=== PATIENT | female | born 1960 | race Hispanic/Latino ===

== ENCOUNTER 2018-07-28 22:46 | Inpatient (IN) | payer OTHER ==
[~2018-07-28] VITALS: Ht 157.5 cm; Wt 54.8 kg
[2018-07-28 23:12] LABS: BASOPHILS % (AUTO) 0.4 % (0.0-5.0); EOSINOPHILS % (AUTO) 0.2 % (0.0-8.0); HEMATOCRIT 34.6 % (36-48); LYMPHOCYTES % (AUTO) 7.8 % (21.0-51.0); MEAN CORPUSCULAR HEMOGLOBIN 26.3 pg (27.0-33.0); MEAN CORPUSCULAR HGB CONC 33.5 g/dL (32.0-36.0); MEAN CORPUSCULAR VOLUME 78.7 fL (79-99); MONOCYTES % (AUTO) 7.4 % (3.0-13.0); NEUTROPHILS % (AUTO) 84.2 % (40.0-77.0); PLATELET COUNT (AUTO) 671 K/uL (130-400); RED CELL DISTRIBUTION WIDTH 16.3 % (11.0-15.5); WHITE BLOOD COUNT (AUTO) 26.3 K/uL (4.8-10.8)
[2018-07-28] MEDS ORDERED: SODIUM CHLORIDE 0.9% 1000ML 1,000 ML IV ONE (23:16)
[2018-07-28] MEDS ORDERED: KETOROLAC TROMETHAMINE 30MG/ML ONE (23:16)
[2018-07-28] MEDS ORDERED: ONDANSETRON HCL 4 MG/2 ML VIAL ONE (23:16)
[2018-07-28 23:28] LABS: BILIRUBIN,TOTAL 0.5 mg/dL (0.2-1.0); CREATININE 0.9 mg/dL (0.5-1.5); POTASSIUM 3.8 mmol/L (3.5-5.1); TOTAL PROTEIN, SERUM 8.4 g/dL (6.0-8.3)
[2018-07-28 23:32] LABS: BILIRUBIN,URINE Negative (NEGATIVE); COLOR,URINE Yellow (YELLOW); GLUCOSE, URINE (UA) >=1000 mg/dL (NEGATIVE); KETONES,URINE Trace mg/dL (NEGATIVE); LEUKOCYTE ESTERASE ,URINE Small (NEGATIVE); NITRATE,URINE Negative (NEGATIVE); OCCULT BLOOD,URINE Small (NEGATIVE); PROTEIN,URINE Trace (NEGATIVE); UROBILINOGEN,URINE 0.2 mg/dL (0.2-1.0)
[2018-07-28 23:37] LABS: APPEARANCE,URINE CLEAR (CLEAR)
[2018-07-28 23:41] LABS: WBC,URINE 26-50 /HPF (0-1)
[2018-07-28 23:42] LABS: BACTERIA,URINE Many /HPF (None Seen)
[2018-07-29] VITALS (7 sets, daily range): BP systolic 93–144; BP diastolic 53–73
[2018-07-29] MEDS ORDERED: CEFTRIAXONE SODIUM 2 GM VIAL ONE (00:15)
[2018-07-29] MEDS ORDERED: SODIUM CHLORIDE 0.9% 1000ML 1,000 ML IV ONE (00:15)
[2018-07-29] MEDS ORDERED: INSULIN HUMULIN R 100 UNIT/ML 3ML ONE (00:16)
[2018-07-29] MEDS ORDERED: SODIUM CHLORIDE 0.9% 100 ML IV ONE (00:16)
[2018-07-29] MEDS: CEFTRIAXONE SODIUM 1 GM IVP SCH (03:00)
[2018-07-29] MEDS ORDERED: GLUCAGON 1MG KIT 1 MG ML IM PRN (03:00)
[2018-07-29] MEDS: SODIUM CHLORIDE 0.9% 1000ML 1,000 ML IV SCH ×3 (03:38→16:52)
[2018-07-29] MEDS ORDERED: METF-446 PO (04:08)
[2018-07-29] MEDS ORDERED: GLYB5TAB8 PO (04:08)
[2018-07-29 04:36] LABS: HEMATOCRIT 28.7 % (36-48); MEAN CORPUSCULAR HEMOGLOBIN 25.4 pg (27.0-33.0); MEAN CORPUSCULAR HGB CONC 32.3 g/dL (32.0-36.0); MEAN CORPUSCULAR VOLUME 78.6 fL (79-99); PLATELET COUNT (AUTO) 515 K/uL (130-400); RED BLOOD CELL COUNT(AUTO) 3.65 MIL/uL (4.00-5.50); RED CELL DISTRIBUTION WIDTH 16.2 % (11.0-15.5); WHITE BLOOD COUNT (AUTO) 20.5 K/uL (4.8-10.8)
[2018-07-29 04:41] LABS: HEMOGLOBIN A1C 11.7 % (4.0-6.0)
[2018-07-29 04:49] LABS: ALBUMIN 2.2 g/dL (3.5-5.0); BILIRUBIN,TOTAL 0.2 mg/dL (0.2-1.0); CREATININE 0.7 mg/dL (0.5-1.5); POTASSIUM 3.6 mmol/L (3.5-5.1); TOTAL PROTEIN, SERUM 6.4 g/dL (6.0-8.3)
[2018-07-29] MEDS: INSULIN HUMULIN R 100 UNIT/ML 3ML SQ SCH ×4 (07:12→21:42)
[2018-07-29] MEDS: FAMOTIDINE/PF 20 MG/2 ML VIAL IV SCH ×2 (10:56→20:31)
[2018-07-29] MEDS: ZOSYN 3.375GM+NS 50ML 50 ML IV SCH ×2 (13:44→20:31)
[2018-07-29] MEDS: ACETAMINOPHEN 325 MG TAB PO PRN (13:44)
[2018-07-29] MEDS: METFORMIN HCL 500 MG TABLET PO SCH ×2 (13:44→17:17)
[2018-07-29] MEDS: ENOXAPARIN SODIUM 40 MG/0.4 ML SYRINGE SQ SCH (13:45)
[2018-07-29] MEDS ORDERED: GLIM4TAB3 PO (20:45)
[2018-07-30] MEDS: CEFTRIAXONE SODIUM 1 GM IVP SCH (02:23)
[2018-07-30] MEDS: SODIUM CHLORIDE 0.9% 1000ML 1,000 ML IV SCH ×3 (02:23→20:11)
[2018-07-30] MEDS: ACETAMINOPHEN 325 MG TAB PO PRN (02:24)
[2018-07-30 03:35] VITALS: BP 116/52
[2018-07-30] MEDS: ZOSYN 3.375GM+NS 50ML 50 ML IV SCH ×3 (05:09→21:24)
[2018-07-30 05:47] LABS: HEMATOCRIT 26.5 % (36-48); MEAN CORPUSCULAR HEMOGLOBIN 25.7 pg (27.0-33.0); MEAN CORPUSCULAR HGB CONC 32.6 g/dL (32.0-36.0); MEAN CORPUSCULAR VOLUME 78.6 fL (79-99); PLATELET COUNT (AUTO) 542 K/uL (130-400); RED BLOOD CELL COUNT(AUTO) 3.37 MIL/uL (4.00-5.50); RED CELL DISTRIBUTION WIDTH 16.1 % (11.0-15.5)
[2018-07-30 06:05] LABS: CREATININE 0.7 mg/dL (0.5-1.5)
[2018-07-30 06:07] LABS: POTASSIUM 2.9 mmol/L (3.5-5.1)
[2018-07-30 06:18] LABS: CRP QUANTITATIVE 270.3 mg/L (0.00-9.0)
[2018-07-30 07:00] VITALS: BP 127/72
[2018-07-30] MEDS: METFORMIN HCL 500 MG TABLET PO SCH ×4 (07:30→16:06)
[2018-07-30] MEDS ORDERED: GLIMEPIRIDE 8 MG PO SCH (08:00)
[2018-07-30] MEDS: FAMOTIDINE/PF 20 MG/2 ML VIAL IV SCH ×2 (10:33→21:24)
[2018-07-30] MEDS: GLIMEPIRIDE 2 MG TABLET PO SCH (10:34)
[2018-07-30] MEDS: ENOXAPARIN SODIUM 40 MG/0.4 ML SYRINGE SQ SCH (10:35)
[2018-07-30 11:00] VITALS: BP 124/75
[2018-07-30] MEDS: INSULIN HUMULIN R 100 UNIT/ML 3ML SQ SCH ×3 (11:13→21:00)
[2018-07-30 16:00] VITALS: BP 136/62
[2018-07-30 20:00] VITALS: BP 128/60
[2018-07-30] MEDS: MEROPENEM 1 GM VIAL IVP SCH (21:24)
[2018-07-31] VITALS: BP 136/73
[2018-07-31] MEDS: SODIUM CHLORIDE 0.9% 1000ML 1,000 ML IV SCH ×3 (02:51→11:28)
[2018-07-31] MEDS: KETOROLAC TROMETHAMINE 15MG/ML IV PRN ×2 (03:08→20:12)
[2018-07-31] MEDS: MEROPENEM 1 GM VIAL IVP SCH ×2 (03:08→11:15)
[2018-07-31 04:00] VITALS: BP 138/72
[2018-07-31] MEDS: ZOSYN 3.375GM+NS 50ML 50 ML IV SCH ×2 (04:45→13:13)
[2018-07-31 05:00] LABS: BASOPHILS % (AUTO) 0.6 % (0.0-5.0); EOSINOPHILS % (AUTO) 2.8 % (0.0-8.0); HEMATOCRIT 26.1 % (36-48); LYMPHOCYTES % (AUTO) 20.7 % (21.0-51.0); MEAN CORPUSCULAR HGB CONC 33.2 g/dL (32.0-36.0); MEAN CORPUSCULAR VOLUME 78.2 fL (79-99); MONOCYTES % (AUTO) 7.7 % (3.0-13.0); NEUTROPHILS % (AUTO) 68.2 % (40.0-77.0); PLATELET COUNT (AUTO) 570 K/uL (130-400); RED BLOOD CELL COUNT(AUTO) 3.34 MIL/uL (4.00-5.50); RED CELL DISTRIBUTION WIDTH 15.9 % (11.0-15.5); WHITE BLOOD COUNT (AUTO) 11.3 K/uL (4.8-10.8)
[2018-07-31 05:19] LABS: ALBUMIN 1.9 g/dL (3.5-5.0); BILIRUBIN,TOTAL 0.1 mg/dL (0.2-1.0); CREATININE 0.6 mg/dL (0.5-1.5)
[2018-07-31] MEDS: INSULIN HUMULIN R 100 UNIT/ML 3ML SQ SCH ×4 (06:45→20:33)
[2018-07-31 07:30] VITALS: BP 135/66
[2018-07-31] MEDS: GLIMEPIRIDE 2 MG TABLET PO SCH (10:03)
[2018-07-31] MEDS: FAMOTIDINE/PF 20 MG/2 ML VIAL IV SCH ×2 (10:04→20:17)
[2018-07-31] MEDS: METFORMIN HCL 500 MG TABLET PO SCH ×2 (10:04→16:25)
[2018-07-31] MEDS: ENOXAPARIN SODIUM 40 MG/0.4 ML SYRINGE SQ SCH (10:05)
[2018-07-31 11:00] VITALS: BP 127/72
[2018-07-31 15:57] VITALS: BP 120/66
[2018-07-31] MEDS: CEFTRIAXONE SODIUM 2 GM VIAL IVP SCH (16:02)
[2018-07-31] MEDS ORDERED: POTASSIUM CHLORIDE 10% ELIXIR 20 MEQ/15 ML UDCUP PO ONE (18:25)
[2018-07-31] MEDS: NS-20 MEQ KCL 1000ML 1,000 ML IV SCH (19:07)
[2018-07-31 20:00] VITALS: BP 147/76
[2018-07-31] MEDS ORDERED: POTASSIUM CHLORIDE 10% ELIXIR 20 MEQ/15 ML UDCUP ONE (20:07)
[2018-08-01] VITALS: BP 131/65
[2018-08-01 04:00] VITALS: BP 144/74
[2018-08-01 05:24] LABS: BASOPHILS % (AUTO) 0.6 % (0.0-5.0); EOSINOPHILS % (AUTO) 3.2 % (0.0-8.0); HEMATOCRIT 29.7 % (36-48); LYMPHOCYTES % (AUTO) 23.3 % (21.0-51.0); MEAN CORPUSCULAR HEMOGLOBIN 26.8 pg (27.0-33.0); MEAN CORPUSCULAR HGB CONC 34.2 g/dL (32.0-36.0); MEAN CORPUSCULAR VOLUME 78.4 fL (79-99); MONOCYTES % (AUTO) 7.8 % (3.0-13.0); NEUTROPHILS % (AUTO) 65.1 % (40.0-77.0); RED BLOOD CELL COUNT(AUTO) 3.78 MIL/uL (4.00-5.50); RED CELL DISTRIBUTION WIDTH 15.9 % (11.0-15.5); WHITE BLOOD COUNT (AUTO) 9.6 K/uL (4.8-10.8)
[2018-08-01 05:34] LABS: ALBUMIN 2.1 g/dL (3.5-5.0); BILIRUBIN,TOTAL 0.1 mg/dL (0.2-1.0); CREATININE 0.6 mg/dL (0.5-1.5); POTASSIUM 3.5 mmol/L (3.5-5.1); TOTAL PROTEIN, SERUM 6.7 g/dL (6.0-8.3)
[2018-08-01 05:52] LABS: PLATELET COUNT (AUTO) 794 K/uL (130-400)
[2018-08-01] MEDS: INSULIN HUMULIN R 100 UNIT/ML 3ML SQ SCH ×4 (06:32→21:00)
[2018-08-01] MEDS: NS-20 MEQ KCL 1000ML 1,000 ML IV SCH ×2 (06:33→17:21)
[2018-08-01] MEDS: METFORMIN HCL 500 MG TABLET PO SCH ×2 (07:42→17:20)
[2018-08-01] MEDS: FAMOTIDINE/PF 20 MG/2 ML VIAL IV SCH ×2 (07:42→21:20)
[2018-08-01] MEDS: ENOXAPARIN SODIUM 40 MG/0.4 ML SYRINGE SQ SCH (07:43)
[2018-08-01] MEDS: GLIMEPIRIDE 2 MG TABLET PO SCH (07:43)
[2018-08-01 07:59] VITALS: BP 149/65
[2018-08-01 11:00] VITALS: BP 130/65
[2018-08-01] MEDS: CEFTRIAXONE SODIUM 2 GM VIAL IVP SCH (14:34)
[2018-08-01 16:00] VITALS: BP 119/90
[2018-08-01] MEDS: KETOROLAC TROMETHAMINE 15MG/ML IV PRN (17:21)
[2018-08-01 20:00] VITALS: BP 149/71
[2018-08-02] VITALS: BP 138/85
[2018-08-02] MEDS: NS-20 MEQ KCL 1000ML 1,000 ML IV SCH ×2 (03:31→16:56)
[2018-08-02 04:00] VITALS: BP 143/66
[2018-08-02 05:04] LABS: BASOPHILS % (AUTO) 0.6 % (0.0-5.0); HEMATOCRIT 29.3 % (36-48); LYMPHOCYTES % (AUTO) 30.6 % (21.0-51.0); MEAN CORPUSCULAR HEMOGLOBIN 25.9 pg (27.0-33.0); MEAN CORPUSCULAR HGB CONC 33.2 g/dL (32.0-36.0); MONOCYTES % (AUTO) 8.5 % (3.0-13.0); NEUTROPHILS % (AUTO) 52.3 % (40.0-77.0); NUCLEATED RED BLOOD CELLS 0.1 % (0.0-0.19); RED BLOOD CELL COUNT(AUTO) 3.75 MIL/uL (4.00-5.50); RED CELL DISTRIBUTION WIDTH 16.6 % (11.0-15.5); WHITE BLOOD COUNT (AUTO) 10.5 K/uL (4.8-10.8)
[2018-08-02 05:08] LABS: CREATININE 0.7 mg/dL (0.5-1.5)
[2018-08-02 05:10] LABS: PLATELET COUNT (AUTO) 747 K/uL (130-400)
[2018-08-02 07:00] VITALS: BP 136/84
[2018-08-02] MEDS: INSULIN HUMULIN R 100 UNIT/ML 3ML SQ SCH ×4 (07:02→21:26)
[2018-08-02] MEDS: METFORMIN HCL 500 MG TABLET PO SCH ×2 (08:59→16:56)
[2018-08-02] MEDS: FAMOTIDINE/PF 20 MG/2 ML VIAL IV SCH ×2 (08:59→21:16)
[2018-08-02] MEDS: GLIMEPIRIDE 2 MG TABLET PO SCH (08:59)
[2018-08-02] MEDS: ENOXAPARIN SODIUM 40 MG/0.4 ML SYRINGE SQ SCH (09:00)
[2018-08-02 11:00] VITALS: BP 139/79
[2018-08-02] MEDS: CEFTRIAXONE SODIUM 2 GM VIAL IVP SCH (15:30)
[2018-08-02 15:36] VITALS: BP 122/66
[2018-08-02 20:00] VITALS: BP 150/75
[2018-08-03] VITALS (7 sets, daily range): BP systolic 140–185; BP diastolic 86–97
[2018-08-03] MEDS: DEXTROSE 50%-WATER 50 ML DISP.SYRIN IV PRN (00:43)
[2018-08-03] MEDS: KETOROLAC TROMETHAMINE 15MG/ML IV PRN (01:13)
[2018-08-03] MEDS: ONDANSETRON HCL MDV 20ML 2 MG/ML VIAL IV PRN ×3 (02:22→16:34)
[2018-08-03] MEDS: KETOROLAC TROMETHAMINE 30MG/ML IV PRN ×3 (05:35→20:46)
[2018-08-03 05:58] LABS: BASOPHILS % (AUTO) 0.5 % (0.0-5.0); EOSINOPHILS % (AUTO) 0.7 % (0.0-8.0); HEMATOCRIT 35.5 % (36-48); LYMPHOCYTES % (AUTO) 10.9 % (21.0-51.0); MEAN CORPUSCULAR HEMOGLOBIN 25.9 pg (27.0-33.0); MEAN CORPUSCULAR HGB CONC 33.1 g/dL (32.0-36.0); MEAN CORPUSCULAR VOLUME 78.3 fL (79-99); MONOCYTES % (AUTO) 5.3 % (3.0-13.0); NEUTROPHILS % (AUTO) 82.6 % (40.0-77.0); RED BLOOD CELL COUNT(AUTO) 4.53 MIL/uL (4.00-5.50); RED CELL DISTRIBUTION WIDTH 16.3 % (11.0-15.5); WHITE BLOOD COUNT (AUTO) 16.3 K/uL (4.8-10.8)
[2018-08-03 06:02] LABS: CREATININE 0.7 mg/dL (0.5-1.5); POTASSIUM 3.8 mmol/L (3.5-5.1)
[2018-08-03 06:07] LABS: PLATELET COUNT (AUTO) 1142 K/uL (130-400)
[2018-08-03 06:31] LABS: % IRON SATURATION 8.6 % (22-44)
[2018-08-03] MEDS ORDERED: CLONIDINE HCL 0.1 MG TABLET ONE (06:47)
[2018-08-03] MEDS: INSULIN HUMULIN R 100 UNIT/ML 3ML SQ SCH ×4 (07:39→20:48)
[2018-08-03] MEDS: METFORMIN HCL 500 MG TABLET PO SCH ×2 (08:00→16:42)
[2018-08-03] MEDS ORDERED: CLONIDINE HCL 0.1 MG TABLET PO PRN (08:30)
[2018-08-03] MEDS: GLIMEPIRIDE 2 MG TABLET PO SCH (09:07)
[2018-08-03] MEDS: FAMOTIDINE/PF 20 MG/2 ML VIAL IV SCH ×2 (09:08→20:45)
[2018-08-03] MEDS: ENOXAPARIN SODIUM 40 MG/0.4 ML SYRINGE SQ SCH (09:08)
[2018-08-03] MEDS: ACETAMINOPHEN 325 MG TAB PO PRN (09:11)
[2018-08-03] MEDS: CEFTRIAXONE SODIUM 2 GM VIAL IVP SCH (13:02)
[2018-08-03] MEDS ORDERED: ACETAMINOPHEN-CODEINE 300/30MG TAB ONE (16:24)
[2018-08-04] MEDS: ONDANSETRON HCL MDV 20ML 2 MG/ML VIAL IV PRN ×2 (00:13→10:06)
[2018-08-04 04:00] VITALS: BP 132/89
[2018-08-04 05:33] LABS: BASOPHILS % (AUTO) 0.4 % (0.0-5.0); EOSINOPHILS % (AUTO) 1.3 % (0.0-8.0); HEMATOCRIT 41.5 % (36-48); LYMPHOCYTES % (AUTO) 17.7 % (21.0-51.0); MEAN CORPUSCULAR HEMOGLOBIN 25.2 pg (27.0-33.0); MEAN CORPUSCULAR HGB CONC 32.1 g/dL (32.0-36.0); MEAN CORPUSCULAR VOLUME 78.4 fL (79-99); MONOCYTES % (AUTO) 7.8 % (3.0-13.0); NEUTROPHILS % (AUTO) 72.8 % (40.0-77.0); RED BLOOD CELL COUNT(AUTO) 5.29 MIL/uL (4.00-5.50); RED CELL DISTRIBUTION WIDTH 16.8 % (11.0-15.5); WHITE BLOOD COUNT (AUTO) 16.1 K/uL (4.8-10.8)
[2018-08-04 05:37] LABS: PLATELET COUNT (AUTO) 1041 K/uL (130-400)
[2018-08-04 05:41] LABS: POTASSIUM 3.8 mmol/L (3.5-5.1)
[2018-08-04] MEDS: INSULIN HUMULIN R 100 UNIT/ML 3ML SQ SCH ×4 (06:17→20:38)
[2018-08-04 08:51] VITALS: BP 101/52
[2018-08-04] MEDS: GLIMEPIRIDE 2 MG TABLET PO SCH (10:05)
[2018-08-04] MEDS: METFORMIN HCL 500 MG TABLET PO SCH ×2 (10:05→18:06)
[2018-08-04] MEDS: FAMOTIDINE/PF 20 MG/2 ML VIAL IV SCH ×2 (10:06→20:32)
[2018-08-04] MEDS: ENOXAPARIN SODIUM 40 MG/0.4 ML SYRINGE SQ SCH (10:08)
[2018-08-04 12:06] VITALS: BP 115/52
[2018-08-04] MEDS: NS-20 MEQ KCL 1000ML 1,000 ML IV SCH (14:43)
[2018-08-04] MEDS: CEFTRIAXONE SODIUM 2 GM VIAL IVP SCH (14:43)
[2018-08-04 16:45] VITALS: BP 135/87
[2018-08-04 20:00] VITALS: BP 156/94
[2018-08-04] MEDS: FERROUS SULFATE 325 MG TABLET.DR PO SCH (20:32)
[2018-08-04 23:33] VITALS: BP 94/57
[2018-08-05] MEDS: NS-20 MEQ KCL 1000ML 1,000 ML IV SCH ×2 (00:19→09:45)
[2018-08-05 03:49] VITALS: BP 99/61
[2018-08-05 04:11] LABS: HEMATOCRIT 37.5 % (36-48); MEAN CORPUSCULAR HGB CONC 32.7 g/dL (32.0-36.0); MEAN CORPUSCULAR VOLUME 79.7 fL (79-99); RED CELL DISTRIBUTION WIDTH 16.7 % (11.0-15.5); WHITE BLOOD COUNT (AUTO) 14.1 K/uL (4.8-10.8)
[2018-08-05 04:15] LABS: CREATININE 0.9 mg/dL (0.5-1.5)
[2018-08-05 04:37] LABS: PLATELET COUNT (AUTO) 1085 K/uL (130-400)
[2018-08-05] MEDS: INSULIN HUMULIN R 100 UNIT/ML 3ML SQ SCH ×4 (06:14→21:25)
[2018-08-05] MEDS: DEXTROSE 50%-WATER 50 ML DISP.SYRIN IV PRN (06:15)
[2018-08-05] MEDS: METOCLOPRAMIDE 10 MG/2 ML VIAL IVP SCH ×3 (06:51→16:26)
[2018-08-05] MEDS: ONDANSETRON HCL MDV 20ML 2 MG/ML VIAL IV PRN ×2 (06:51→16:26)
[2018-08-05 08:00] VITALS: BP 143/76
[2018-08-05] MEDS: FOLIC ACID/VITAMIN B COMP W-C 1 MG CAPSULE PO SCH (08:46)
[2018-08-05] MEDS: GLIMEPIRIDE 2 MG TABLET PO SCH (08:48)
[2018-08-05] MEDS: FAMOTIDINE/PF 20 MG/2 ML VIAL IV SCH ×2 (08:48→21:13)
[2018-08-05] MEDS: FERROUS SULFATE 325 MG TABLET.DR PO SCH ×2 (08:48→21:13)
[2018-08-05] MEDS: METFORMIN HCL 500 MG TABLET PO SCH ×2 (08:48→16:26)
[2018-08-05] MEDS: ENOXAPARIN SODIUM 40 MG/0.4 ML SYRINGE SQ SCH (08:49)
[2018-08-05] MEDS: SODIUM CHLORIDE 0.9% 1000ML 1,000 ML IV SCH (11:20)
[2018-08-05 12:00] VITALS: BP 148/90
[2018-08-05] MEDS ORDERED: PROMETHAZINE HCL 25 MG/ML 1ML AMPULE IM ONE ×2 (15:00→21:07)
[2018-08-05 16:00] VITALS: BP 158/97
[2018-08-05] MEDS: CEFTRIAXONE SODIUM 2 GM VIAL IVP SCH (16:24)
[2018-08-05 20:00] VITALS: BP 159/95
[2018-08-06] VITALS: BP 131/76
[2018-08-06] MEDS: SODIUM CHLORIDE 0.9% 1000ML 1,000 ML IV SCH ×2 (03:04→23:51)
[2018-08-06 04:00] VITALS: BP 123/74
[2018-08-06] MEDS: DEXTROSE 50%-WATER 50 ML DISP.SYRIN IV PRN (05:47)
[2018-08-06] MEDS: INSULIN HUMULIN R 100 UNIT/ML 3ML SQ SCH ×4 (05:51→21:00)
[2018-08-06] MEDS: METOCLOPRAMIDE 10 MG/2 ML VIAL IVP SCH ×3 (07:30→16:51)
[2018-08-06] MEDS: GLIMEPIRIDE 2 MG TABLET PO SCH (08:00)
[2018-08-06] MEDS: METFORMIN HCL 500 MG TABLET PO SCH ×2 (08:00→16:51)
[2018-08-06 08:22] VITALS: BP 105/60
[2018-08-06] MEDS: FAMOTIDINE/PF 20 MG/2 ML VIAL IV SCH ×2 (11:49→23:49)
[2018-08-06] MEDS: FERROUS SULFATE 325 MG TABLET.DR PO SCH ×2 (11:50→21:00)
[2018-08-06] MEDS: FOLIC ACID/VITAMIN B COMP W-C 1 MG CAPSULE PO SCH (11:50)
[2018-08-06] MEDS: ENOXAPARIN SODIUM 40 MG/0.4 ML SYRINGE SQ SCH (11:51)
[2018-08-06 12:14] VITALS: BP 91/51
[2018-08-06] MEDS: CEFTRIAXONE SODIUM 2 GM VIAL IVP SCH (15:41)
[2018-08-06 16:03] VITALS: BP 94/62
[2018-08-06 20:00] VITALS: BP 81/55
[2018-08-07] VITALS (7 sets, daily range): BP systolic 98–140; BP diastolic 54–80
[2018-08-07] MEDS: INSULIN HUMULIN R 100 UNIT/ML 3ML SQ SCH ×4 (06:35→19:56)
[2018-08-07] MEDS: METFORMIN HCL 500 MG TABLET PO SCH (08:35)
[2018-08-07] MEDS: FOLIC ACID/VITAMIN B COMP W-C 1 MG CAPSULE PO SCH (08:35)
[2018-08-07] MEDS: FERROUS SULFATE 325 MG TABLET.DR PO SCH ×2 (08:35→20:52)
[2018-08-07] MEDS: GLIMEPIRIDE 2 MG TABLET PO SCH (08:35)
[2018-08-07] MEDS: FAMOTIDINE/PF 20 MG/2 ML VIAL IV SCH ×2 (08:36→20:52)
[2018-08-07] MEDS: METOCLOPRAMIDE 10 MG/2 ML VIAL IVP SCH ×3 (08:36→16:12)
[2018-08-07] MEDS: ENOXAPARIN SODIUM 40 MG/0.4 ML SYRINGE SQ SCH (08:37)
[2018-08-07] MEDS: DEXTROSE 50%-WATER 50 ML DISP.SYRIN IV PRN ×3 (11:35→23:20)
[2018-08-07] MEDS: SODIUM CHLORIDE 0.9% 1000ML 1,000 ML IV SCH ×2 (11:52→15:50)
[2018-08-07] MEDS: CEFTRIAXONE SODIUM 2 GM VIAL IVP SCH (14:19)
[2018-08-07 15:06] LABS: BASOPHILS % (AUTO) 0.7 % (0.0-5.0); EOSINOPHILS % (AUTO) 3.6 % (0.0-8.0); HEMATOCRIT 30.6 % (36-48); LYMPHOCYTES % (AUTO) 33.4 % (21.0-51.0); MEAN CORPUSCULAR HEMOGLOBIN 26.5 pg (27.0-33.0); MEAN CORPUSCULAR HGB CONC 33.3 g/dL (32.0-36.0); MEAN CORPUSCULAR VOLUME 79.4 fL (79-99); NEUTROPHILS % (AUTO) 53.3 % (40.0-77.0); RED BLOOD CELL COUNT(AUTO) 3.85 MIL/uL (4.00-5.50); RED CELL DISTRIBUTION WIDTH 16.4 % (11.0-15.5); WHITE BLOOD COUNT (AUTO) 7.8 K/uL (4.8-10.8)
[2018-08-07 15:12] LABS: PLATELET COUNT (AUTO) 816 K/uL (130-400)
[2018-08-07 15:20] LABS: CREATININE 0.6 mg/dL (0.5-1.5); POTASSIUM 3.8 mmol/L (3.5-5.1)
[2018-08-07] MEDS: DEXTROSE 5 % AND 0.9 % NACL 1,000 ML IV SCH (23:59)
[2018-08-08 03:00] VITALS: BP 133/76
[2018-08-08 04:28] LABS: HEMATOCRIT 31.5 % (36-48); MEAN CORPUSCULAR HGB CONC 33.1 g/dL (32.0-36.0); MEAN CORPUSCULAR VOLUME 78.7 fL (79-99); NUCLEATED RED BLOOD CELLS 0.1 % (0.0-0.19); RED CELL DISTRIBUTION WIDTH 16.3 % (11.0-15.5); WHITE BLOOD COUNT (AUTO) 6.3 K/uL (4.8-10.8)
[2018-08-08 04:34] LABS: PLATELET COUNT (AUTO) 709 K/uL (130-400)
[2018-08-08 04:49] LABS: ALBUMIN 2.5 g/dL (3.5-5.0); BILIRUBIN,TOTAL 0.1 mg/dL (0.2-1.0); CREATININE 0.5 mg/dL (0.5-1.5); MAGNESIUM 1.3 mg/dL (1.80-2.40); POTASSIUM 3.4 mmol/L (3.5-5.1); TOTAL PROTEIN, SERUM 6.3 g/dL (6.0-8.3)
[2018-08-08] MEDS ORDERED: POTASSIUM CHLORIDE 20MEQ/100ML 100 ML IV PRN (05:00)
[2018-08-08] MEDS ORDERED: MAGNESIUM 2GM PREMIX 50ML 50 ML IV PRN (05:00)
[2018-08-08] MEDS ORDERED: POTASSIUM CHLORIDE 10% ELIXIR 20 MEQ/15 ML UDCUP PO PRN (05:00)
[2018-08-08] MEDS ORDERED: LIDOCAINE HCL-MPF 1% 2ML VIAL IVP PRN (05:00)
[2018-08-08] MEDS ORDERED: MAGNESIUM 2GM PREMIX 50ML 50 ML IV ONE (05:00)
[2018-08-08] MEDS ORDERED: POTASSIUM CHLORIDE 20 MEQ ERTAB PO PRN (05:00)
[2018-08-08] MEDS: INSULIN HUMULIN R 100 UNIT/ML 3ML SQ SCH ×4 (06:35→20:30)
[2018-08-08 08:00] VITALS: BP 127/80
[2018-08-08] MEDS: METFORMIN HCL 500 MG TABLET PO SCH ×2 (08:00→16:57)
[2018-08-08] MEDS: FAMOTIDINE/PF 20 MG/2 ML VIAL IV SCH ×2 (09:17→20:29)
[2018-08-08] MEDS: FOLIC ACID/VITAMIN B COMP W-C 1 MG CAPSULE PO SCH (09:19)
[2018-08-08] MEDS: ENOXAPARIN SODIUM 40 MG/0.4 ML SYRINGE SQ SCH (09:19)
[2018-08-08] MEDS: FERROUS SULFATE 325 MG TABLET.DR PO SCH ×2 (09:19→20:29)
[2018-08-08] MEDS: METOCLOPRAMIDE 10 MG/2 ML VIAL IVP SCH ×3 (09:24→16:41)
[2018-08-08 11:46] VITALS: BP 148/95
[2018-08-08] MEDS: CEFTRIAXONE SODIUM 2 GM VIAL IVP SCH (13:42)
[2018-08-08] MEDS: DEXTROSE 5 % AND 0.9 % NACL 1,000 ML IV SCH (13:43)
[2018-08-08 16:00] VITALS: BP 124/71
[2018-08-08 20:00] VITALS: BP 100/56
[2018-08-08] MEDS: DEXTROSE 50%-WATER 50 ML DISP.SYRIN IV PRN (20:30)
[2018-08-08 23:45] VITALS: BP 129/84
[2018-08-09] MEDS: DEXTROSE 5 % AND 0.9 % NACL 1,000 ML IV SCH (02:31)
[2018-08-09 03:57] VITALS: BP 121/62
[2018-08-09 05:29] LABS: BASOPHILS % (AUTO) 1.4 % (0.0-5.0); EOSINOPHILS % (AUTO) 5.4 % (0.0-8.0); HEMATOCRIT 30.2 % (36-48); LYMPHOCYTES % (AUTO) 44.3 % (21.0-51.0); MEAN CORPUSCULAR HEMOGLOBIN 26.8 pg (27.0-33.0); MEAN CORPUSCULAR VOLUME 78.9 fL (79-99); MONOCYTES % (AUTO) 8.7 % (3.0-13.0); NEUTROPHILS % (AUTO) 40.2 % (40.0-77.0); PLATELET COUNT (AUTO) 652 K/uL (130-400); RED BLOOD CELL COUNT(AUTO) 3.83 MIL/uL (4.00-5.50); RED CELL DISTRIBUTION WIDTH 16.6 % (11.0-15.5); WHITE BLOOD COUNT (AUTO) 5.4 K/uL (4.8-10.8)
[2018-08-09 05:37] LABS: CREATININE 0.6 mg/dL (0.5-1.5); MAGNESIUM 1.4 mg/dL (1.80-2.40); POTASSIUM 3.6 mmol/L (3.5-5.1)
[2018-08-09] MEDS: INSULIN HUMULIN R 100 UNIT/ML 3ML SQ SCH ×4 (06:12→21:00)
[2018-08-09] MEDS: METOCLOPRAMIDE 10 MG/2 ML VIAL IVP SCH ×3 (06:52→17:35)
[2018-08-09 08:18] VITALS: BP 134/81
[2018-08-09] MEDS: FOLIC ACID/VITAMIN B COMP W-C 1 MG CAPSULE PO SCH (08:31)
[2018-08-09] MEDS: GLIMEPIRIDE 2 MG TABLET PO SCH (08:31)
[2018-08-09] MEDS: FERROUS SULFATE 325 MG TABLET.DR PO SCH ×2 (08:31→21:21)
[2018-08-09] MEDS: METFORMIN HCL 500 MG TABLET PO SCH ×3 (08:31→17:00)
[2018-08-09] MEDS: FAMOTIDINE/PF 20 MG/2 ML VIAL IV SCH ×2 (08:32→21:21)
[2018-08-09] MEDS: ENOXAPARIN SODIUM 40 MG/0.4 ML SYRINGE SQ SCH (08:32)
[2018-08-09 11:35] VITALS: BP 113/73
[2018-08-09] MEDS: CEFTRIAXONE SODIUM 2 GM VIAL IVP SCH (12:57)
[2018-08-09] MEDS ORDERED: SODIUM CHLORIDE 0.9% 1000ML 1,000 ML IV SCH (13:00)
[2018-08-09 16:39] VITALS: BP 138/84
[2018-08-09 20:00] VITALS: BP 105/74
[2018-08-10] VITALS: BP 143/81
[2018-08-10 04:00] VITALS: BP 138/88
[2018-08-10 05:34] LABS: BASOPHILS % (AUTO) 1.3 % (0.0-5.0); EOSINOPHILS % (AUTO) 6.5 % (0.0-8.0); HEMATOCRIT 31.7 % (36-48); LYMPHOCYTES % (AUTO) 46.5 % (21.0-51.0); MEAN CORPUSCULAR HEMOGLOBIN 26.1 pg (27.0-33.0); MEAN CORPUSCULAR HGB CONC 32.8 g/dL (32.0-36.0); MEAN CORPUSCULAR VOLUME 79.6 fL (79-99); MONOCYTES % (AUTO) 9.2 % (3.0-13.0); NEUTROPHILS % (AUTO) 36.5 % (40.0-77.0); PLATELET COUNT (AUTO) 532 K/uL (130-400); RED BLOOD CELL COUNT(AUTO) 3.98 MIL/uL (4.00-5.50); RED CELL DISTRIBUTION WIDTH 17.1 % (11.0-15.5); WHITE BLOOD COUNT (AUTO) 5.5 K/uL (4.8-10.8)
[2018-08-10 05:54] LABS: CREATININE 0.7 mg/dL (0.5-1.5); POTASSIUM 4.1 mmol/L (3.5-5.1)
[2018-08-10] MEDS: METOCLOPRAMIDE 10 MG/2 ML VIAL IVP SCH ×2 (06:52→12:11)
[2018-08-10 07:00] VITALS: BP 141/84
[2018-08-10] MEDS: INSULIN HUMULIN R 100 UNIT/ML 3ML SQ SCH ×2 (07:30→12:11)
[2018-08-10] MEDS: GLIMEPIRIDE 2 MG TABLET PO SCH (08:41)
[2018-08-10] MEDS: METFORMIN HCL 500 MG TABLET PO SCH (08:42)
[2018-08-10] MEDS: FOLIC ACID/VITAMIN B COMP W-C 1 MG CAPSULE PO SCH (08:42)
[2018-08-10] MEDS: FERROUS SULFATE 325 MG TABLET.DR PO SCH (08:42)
[2018-08-10] MEDS: FAMOTIDINE/PF 20 MG/2 ML VIAL IV SCH (08:43)
[2018-08-10] MEDS: ENOXAPARIN SODIUM 40 MG/0.4 ML SYRINGE SQ SCH (08:44)
[2018-08-10 11:00] VITALS: BP 128/68
[2018-08-10] MEDS: CEFTRIAXONE SODIUM 2 GM VIAL IVP SCH (12:31)
[2018-08-10] MEDS ORDERED: FOLI1TAB15 PO (14:15)
[2018-08-10] MEDS ORDERED: FERR-82 PO (14:15)
[2018-08-10 16:50] VITALS: BP 125/65
== END 2018-08-10 16:51 | disposition home or self-care (01) | DRG 871 ==
LOC: EDH 22:46 → EDHIP 22:47 → 3CH 07-29 01:03
PROVIDERS: ADMIT Internal Medicine; ATTEND Internal Medicine
DX: A41.51 Sepsis due to Escherichia coli [E. coli] (principal); E43 Unspecified severe protein-calorie malnutrition; N10 Acute pyelonephritis; C92.10 Chronic myeloid leukemia, BCR/ABL-positive, not having achieved remission; N17.9 Acute kidney failure, unspecified; E11.65 Type 2 diabetes mellitus with hyperglycemia; R59.9 Enlarged lymph nodes, unspecified; D47.3 Essential (hemorrhagic) thrombocythemia; D50.9 Iron deficiency anemia, unspecified; E11.43 Type 2 diabetes mellitus with diabetic autonomic (poly)neuropathy; K31.84 Gastroparesis; E86.1 Hypovolemia; K52.9 Noninfective gastroenteritis and colitis, unspecified; Z68.22 Body mass index [BMI] 22.0-22.9, adult; Z88.5 Allergy status to narcotic agent; Z88.8 Allergy status to other drugs, medicaments and biological substances; Z83.3 Family history of diabetes mellitus; Z82.49 Family history of ischemic heart disease and other diseases of the circulatory system
CPT/HCPCS: 36415; 74176; 78264; 80048; 80053; 81001; 82607; 82728; 82746; 82947; 82948; 83036; 83540; 83550; 83605; 83690; 83735; 85025; 85027; 85060; 86140; 87040; 87077; 87088; 87186; 93005; 97039; A4218; A6250; A9541; J0696; J1650; J1815; J1885; J2185; J2405; J2543; J2550; J2765; J3475; J3480; J3490; J7030; J7042; J7070

== ENCOUNTER 2024-08-14 14:36 | Emergency (ER) | payer OTHER, MEDICARE ==
[~2024-08-14] VITALS: Ht 154.9 cm; Wt 75.3 kg
[~2024-08-14 14:36] MED LIST: FERR-82 PO; FOLI1TAB15 PO; GLIM4TAB36 PO; METF-446 PO
[2024-08-14 14:38] VITALS: BP 95/62; PULSE 101; RESP 18; TEMP 98.5; O2SAT 97
[2024-08-14 15:05] LABS: RAPID GROUP A STREP negative (NEGATIVE)
[2024-08-14 15:13] LABS: SARS-CoV-2, RNA, NAAT NEGATIVE SARS CoV-2 (NEGATIVE)
[2024-08-14 15:17] LABS: INFLUENZA TYPE B Negative For Type B (NEGATIVE)
[2024-08-14 15:24] LABS: INFLUENZA TYPE A Positive For Type A (NEGATIVE)
[2024-08-14] MEDS ORDERED: OSEL75 PO (15:46)
[2024-08-14] MEDS ORDERED: ONDA-243 PO (15:46)
== END 2024-08-14 16:16 | disposition home or self-care (01) ==
LOC: EDH 14:36
DX: J10.1 Influenza due to other identified influenza virus with other respiratory manifestations (principal); E11.9 Type 2 diabetes mellitus without complications; E78.00 Pure hypercholesterolemia, unspecified; I10 Essential (primary) hypertension; Z20.822 Contact with and (suspected) exposure to COVID-19; Z79.899 Other long term (current) drug therapy; Z88.1 Allergy status to other antibiotic agents; Z88.5 Allergy status to narcotic agent
CPT/HCPCS: 71045; 87635; 87804; 87880

== ENCOUNTER 2024-11-24 12:22 | Emergency (ER) | payer OTHER, MEDICARE ==
[~2024-11-24] VITALS: Ht 154.9 cm; Wt 59.0 kg
[~2024-11-24 12:22] MED LIST changes: +ONDA-243 PO; +OSEL75 PO
[2024-11-24 13:23] LABS: APPEARANCE,URINE CLOUDY (CLEAR); BILIRUBIN,URINE NEGATIVE (NEGATIVE); COLOR,URINE LIGHT-YELLOW (YELLOW); GLUCOSE, URINE (UA) NEGATIVE (NEGATIVE); KETONES,URINE NEGATIVE (NEGATIVE); LEUKOCYTE ESTERASE ,URINE 500 Leu/uL (NEGATIVE); NITRATE,URINE NEGATIVE (NEGATIVE); OCCULT BLOOD,URINE NEGATIVE (NEGATIVE); PROTEIN,URINE NEGATIVE (NEGATIVE); UROBILINOGEN,URINE 0.2 mg/dL (0.2-1.0)
[2024-11-24 13:24] LABS: ADD UA MICROSCOPIC YES
[2024-11-24 13:29] LABS: MUCUS,URINE RARE LPF (None Seen); SQUAMOUS EPITHELIAL CELL,UR RARE /HPF (0-2); WBC,URINE 26-50 /HPF (0-1)
[2024-11-24] MEDS ORDERED: NITR100C4 PO (13:34)
--- NOTE | 2024-11-24 13:35 | ERN ---
General Chief Complaint: Painful Urination Stated Complaint: BACK PAIN,MULTIPLE COMPLAINTS Time Seen by MD: 12:23 History of Present Illness Initial Comments 64-year-old female who presents for suprapubic pressure, urgency and dysuria for 48 hours. No systemic illness. No fevers or vomiting. Allergies: Coded Allergies: ciprofloxacin (Unverified Allergy, Unknown, 07/29/18) codeine (Unverified Allergy, Unknown, 07/29/18) Home Meds Active Scripts Ondansetron (Ondansetron Odt) 4 Mg Tab.rapdis, 1 TAB PO Q6HPRN PRN for nausea/vomiting for 4 Days, #10 TAB 0 Refills Prov:JEAN CLAUDE CHAMORRO DO 08/14/24 Oseltamivir Phosphate (Tamiflu) 75 Mg Cap, 1 CAP PO BID for 5 Days, #10 CAP 0 Refills Prov:JEAN CLUADE CHAMORRO DO 08/14/24 Folic Acid (Folic Acid) 1 Mg Tablet, 1 MG PO DAILY for 10 Days, #10 TAB Prov:ELVIA SALAZAR [facility] 08/10/18 Ferrous Sulfate (Iron) 325 Mg Tablet, 325 MG PO BID for 10 Days, #20 TAB Prov:ELVIA SALAZAR [facility] 08/10/18 Reported Medications Glimepiride (Glimepiride) 4 Mg Tablet, 8 MG PO DAILYBKFST, TAB 07/29/18 Metformin HCl (Metformin HCl) 1,000 Mg Tablet, 1000 MG PO BIDAC, TAB 07/29/18 Past Medical History Past Medical History: Diabetes-Type II, High Cholesterol, Hypertension Past Surgical History: ROS Dictation CONSTITUTIONAL: No chills, no fever, no weakness, no diaphoresis, no malaise. HEAD/FACE: No signs of trauma. EENT: No eye pain, no blurred vision, no tearing, no double vision, no ear pain, no ear discharge, no nose pain, no nasal congestion, no throat pain, no throat swelling, no mouth pain. RESPIRATORY: No cough, no orthopnea, no SOB, no stridor, no wheezing. CARDIOVASCULAR: No chest pain, no edema, no palpitations, no syncope. GASTROINTESTINAL/ABDOMINAL: No abdominal pain, no constipation, no diarrhea, no nausea, no vomiting. GENITOURINARY: Dysuria and urgency MUSCULOSKELETAL: No back pain, no gout, no joint pain, no joint swelling, no muscle pain, no muscle stiffness, no neck pain. INTEGUMENTARY: No change in color, no change in hair/nails, no dryness, no lesion, no lumps, no rash. NEUROLOGICAL/PSYCH: No anxiety, not depressed, no emotional problem, no headache, no numbness, no pre-existing deficit, no history of seizures, no tremors, no weakness. HEMATOLOGIC/LYMPHATIC: Not anemic, no history of blood clots, no apparent bleeding, no bruising, glands not swollen. All Systems Negative, Except as Noted. Physical Exam Physical Exam Dictation VITAL SIGNS: Reviewed. GENERAL APPEARANCE: Alert, oriented x3, no acute distress. HEAD AND FACE: Non-traumatic. EYES: PERRL, pink conjunctivas, eyelid no trauma, anterior chamber clear. EARS: Pinnas intact and no signs of trauma or erythema. Ear canals clear and no discharge. TMs no erythema. NOSE: No discharge, no bleeding. OROPHARYNX: Mouth normal, teeth no caries, tongue pink. Pharynx clear, no erythema. Tonsils no exudates, no abscesses noted. Mucous membrane moist. NECK: Supple, non-tender, no thyromegaly, no masses, no JVD, no bruits. BREAST: Deferred. CHEST: No tenderness, no crepitus, no paradoxical movement, no retractions. LUNGS: Clear, well-ventilated, symmetric, no rales, no wheezing, no rhonchi, no stridor, good breath sounds bilaterally. HEART: Regular rate, regular rhythm, no murmur, no gallops. VASCULAR: No peripheral edema. ABDOMEN: Soft, positive bowel sounds, nondistended, no guarding, nontender, no rebound, no masses no hepatomegaly, no splenomegaly, no Rouse's sign, no hernias. RECTAL: Deferred. GENITAL: Deferred. NEUROLOGICAL: Normal speech, gross motor function intact, gross sensory function intact. MUSCULOSKELETAL: Neck nontender, full range of motion, back nontender, full range of motion. EXTREMITIES: Nontender, full range of motion. SKIN: Color pink, dry, no turgor, no rash, no lacerations, no abrasions, no c ontusions. LYMPHATICS: Deferred. Results Laboratory and Microbiology Lab and Micro Result Laboratory Tests Test 11/24/24 12:49 Urine Color LIGHT-YELLOW (YELLOW) Urine Appearance CLOUDY (CLEAR) H Urine pH 7.0 (5.0-8.0) Urine Specific [place] 1.014 (1.001-1.031) Urine Protein NEGATIVE mg/dL (NEGATIVE) Urine Glucose (UA) NEGATIVE mg/dL (NEGATIVE) Urine Ketones NEGATIVE mg/dL (NEGATIVE) Urine Occult Blood NEGATIVE (NEGATIVE) Urine Nitrate NEGATIVE (NEGATIVE) Urine Bilirubin NEGATIVE mg/dL (NEGATIVE) Urine Urobilinogen 0.2 mg/dL (0.2-1.0) Urine Leukocyte Esterase 500 Antonio/uL (NEGATIVE) H Urine RBC 2-5 /HPF (0-1) H Urine WBC 26-50 /HPF (0-1) H Urine Squamous Epithelial Cells RARE /HPF (0-2) Urine Bacteria None /HPF (None Seen) MDM CC: Dysuria, suprapubic discomfort, urgency Historian: Patient No comorbidities No limitations by social determinants of health Vital signs are stable Differential diagnosis: Simple cystitis but has been versus sepsis Vital signs are stable. No clinical signs of SIRS or sepsis Clinical exam is unremarkable. No flank pain, no signs of sepsis no signs of pyelonephritis Urinalysis shows leuk esterase, consistent with a urinary tract infection. Patient given IM Rocephin in the ER. Plan: We will discharge with antibiotics recommend PCP follow up. ED Course Orders Procedure Category Date Status Time Urinalysis Profile LAB 11/24/24 Complete 12:34 Culture Urine DANETTE 11/24/24 In Process 13:24 Vital Signs Date Time Temp Pulse Resp B/P (MAP) Pulse Ox O2 Delivery O2 Flow Rate FiO2 11/24/24 12:35 98.2 95 20 107/55 99 0 DX & DISP Disposition: Discharge Departure Impression: Primary Impression: UTI (urinary tract infection) Condition: Stable Scripts Nitrofurantoin Monohyd/M-Cryst (Macrobid 100 mg Capsule) 100 Mg Capsule 1 CAP PO BID for 5 Days, #10 CAP 0 Refills Prov: JEAN CLAUDE CHAMORRO DO 11/24/24 Additional Instructions: You have a urinary tract infection based on your symptoms and urinalysis. You received a dose of antibiotics in the ER. I have prescribed antibiotics. Please take as prescribed. You can try [id number] [id number] as needed for discomfort. You can alternate Tylenol and ibuprofen as needed for pain or fever. Please follow up with your primary doctor in 48 hours for re-evaluation. Return to the emergency department as needed. Referrals: SOCO COOPER (PCP) JEAN CLAUDE CHAMORRO DO Nov 24, 2024 13:35
[2024-11-24] MEDS: cefTRIAXone 1G VIAL IM ONE (14:02)
[2024-11-24 14:11] VITALS: BP 161/62; PULSE 78; RESP 20; TEMP 98.7; O2SAT 100
== END 2024-11-24 14:18 | disposition home or self-care (01) ==
LOC: EDH 12:22
DX: N39.0 Urinary tract infection, site not specified (principal); E11.9 Type 2 diabetes mellitus without complications; E78.00 Pure hypercholesterolemia, unspecified; I10 Essential (primary) hypertension; Z88.1 Allergy status to other antibiotic agents; Z88.5 Allergy status to narcotic agent
CPT/HCPCS: 99283; 87086 ×2; 87186; 81001; 96372; J0696

== ENCOUNTER 2025-02-08 21:33 | Emergency (ER) | payer OTHER, MEDICARE ==
[~2025-02-08] VITALS: Ht 154.9 cm; Wt 71.7 kg
[~2025-02-08 21:33] MED LIST changes: +NITR100C4 PO
[2025-02-08] MEDS: ketOROlac 15MG/ML VIAL (15MG/ML) IM STA (22:28)
--- NOTE | 2025-02-08 23:20 | ERN ---
ED Note History of Present Illness Stated Complaint: C/O PAIN WITH SWELLING TO LEFT LOWER LEG Chief Complaint: Lower Extremity Pain/Injury Time Seen by MD: 21:37 Time Seen by Midlevel: 21:40 Dictation: 64-year-old female coming in complaining of left knee pain. Patient states she hit her in her knee on a corner of a drawer twice today. Ecchymosis noted about an inch to [id number], however patient is complaining of pain on the lateral aspects of the knee. Allergies: Coded Allergies: ciprofloxacin (Unverified Allergy, Unknown, 07/29/18) codeine (Unverified Allergy, Unknown, 07/29/18) Home Meds Active Scripts Nitrofurantoin Monohyd/M-Cryst (Macrobid 100 mg Capsule) 100 Mg Capsule, 1 CAP PO BID for 5 Days, #10 CAP 0 Refills Prov:JEAN CLAUDE CHAMORRO DO 11/24/24 Ondansetron (Ondansetron Odt) 4 Mg Tab.rapdis, 1 TAB PO Q6HPRN PRN for nausea/vomiting for 4 Days, #10 TAB 0 Refills Prov:JEAN CLAUDE CHAMORRO DO 08/14/24 Oseltamivir Phosphate (Tamiflu) 75 Mg Cap, 1 CAP PO BID for 5 Days, #10 CAP 0 Refills Prov:JEAN CLAUDE CHAMORRO DO 08/14/24 Folic Acid (Folic Acid) 1 Mg Tablet, 1 MG PO DAILY for 10 Days, #10 TAB Prov:ELVIA SALAZAR [facility] 08/10/18 Ferrous Sulfate (Iron) 325 Mg Tablet, 325 MG PO BID for 10 Days, #20 TAB Prov:ELVIA SALAZAR [facility] 08/10/18 Reported Medications Glimepiride (Glimepiride) 4 Mg Tablet, 8 MG PO DAILYBKFST, TAB 07/29/18 Metformin HCl (Metformin HCl) 1,000 Mg Tablet, 1000 MG PO BIDAC, TAB 07/29/18 Past Medical History Past Medical History: Arthritis, Diabetes-Type II, Hypertension, Other Additional Past Medical Hx: HX OF GASTRITIS Surgical History: Review of System Dictation Constitutional: Negative for fever,chills, and weight loss Eyes: Negative for injury, pain,redness, and discharge ENT: Negative for injury,pain or swelling Cardiovascular: Negative for chest pain, palpitations, and edema Respiratory: Negative for shortness of breath, cough, and wheezing, Abdomen/GI: Negative for abdominal pain, nausea, vomiting, diarrhea, and con stipation Back: Negative for injury and pain : Negative for injury, bleeding and discharge MS/Extremity: complaining of left knee pain Skin: Negative for rash, and discoloration Neuro: Negative for headache, weakness, numbness, tingling, and seizure Psych: Negative for suicide ideation, homicidal ideation, and hallucinations Review of Systems: was completed Initial Vital Sign VS Vital Signs Date Time Temp Pulse Resp B/P (MAP) Pulse Ox O2 Delivery O2 Flow Rate FiO2 02/08/25 21:35 98.2 96 20 150/76 97 Room Air 02/08/25 22:40 0 21 Physical Exam Dictation General: awake, alert, NAD Head/Face: Normocephalic, atraumatic Eyes: PERRL, EOMI, vision at baseline ENT: oral cavity clear, TMs clear, no signs of infection Neck: Trachea midline, supple, no nuchal rigidity Cardiovascular: RRR, normal S1/S2, No MRGs, no JVD Respiratory: CTAB, no respiratory distress, No rales or wheezes Abdomen: Soft, non-tender, non-distended, normal bowel sounds, no guarding or rebound. Skin: Warm, dry, normal turgor, no rash MS/Extremity: Pulses equal, no cyanosis, neurovascular intact, FROM, there is ecchymosis about an inches [id number], pain on palpation in the lateral aspect of the knee, more so on flexion Neuro: COAx4, GCS 15, strength 5/5, CN 2-12 intact, normal cerebellar exam, normal gait, Psych: Normal behavior, mood, and affect normal Results (Laboratory/Radiology) Labs Reviewed?: Yes ED Course ED Course Orders Procedure Category Date Status Time Knee 3vws Lt RAD 02/08/25 Taken 21:45 Ketorolac PHA 02/08/25 Complete Tromethamine 15mg/Ml 21:45 Place Knee Imobilizer CPOE 02/08/25 Verified To: (Er) 23:15 Current Medications Medications (Trade) Dose Ordered Sig/Lida Route PRN Reason Start Time Stop Time Status Last Admin Dose Admin Ketorolac Tromethamine (toRADol) 15 mg ONCE STAT IM 02/08/25 21:45 02/08/25 21:48 DC 02/08/25 22:28 Vital Signs Date Time Temp Pulse Resp B/P (MAP) Pulse Ox O2 Delivery O2 Flow Rate FiO2 02/08/25 22:40 80 18 120/67 100 Room Air* 0 21 02/08/25 21:35 98.2 96 20 150/76 97 Room Air Medical Decision Making MDM MDM: 64-year-old female coming in complaining of left knee pain. Patient states she hit her in her knee on a corner of a drawer twice today. Ecchymosis noted about an inch to [id number], however patient is complaining of pain on the lateral aspects of the knee. X-ray shows no acute findings, interpreted by me. Discussed with the patient that she needs to follow up with her PCP as she might need further evaluation for tendon or ligament injury. Patient will was placed in a knee immobilizer. Discussed to take Tylenol or Motrin [id number]. Patient verbalized understanding, answered all questions. Differential diagnosis: Knee contusion, knee dislocation, ligament injury Rationale: Tests considered and ordered secondary to shared decision making include: Previous outside records reviewed: Old ER visits. Risk of complication and/or morbidity or mortality of patient management: None Medications-Per medication reconciliation Need for hospitalization: Patient does not meet criteria for hospitalization. Need for emergency major/minor surgery: No There are no social concerns with this patient. Prescription drug management Prescriptions will include symptomatic care Patient's prior external medical records from other ER visits were reviewed by me as indicated. Prior testing and results from previous visits were reviewed. Prior tests were taken into account with medical decision making and resource utilization, independent historian/historians were used to obtain complete medical history. I independently interpreted the test that were performed, results were reviewed by me and considered findings on radiology if ordered. Medical management and examination interpretation discussions were had by me with other qualified healthcare professionals as indicated for the patient's care. DX & DISP Disposition: Discharge Departure Impression: Primary Impression: Contusion, knee Condition: Stable Additional Instructions: Take Tylenol or Motrin [id number] for pain control. Follow up with PCP as you might need further evaluation for nerve or tendon involvement. Referrals: SOCO COOPER (PCP) Time of Disposition: 23:19 I have reviewed the case, and I agree with WILLIS BLEVINS VISUAL SPECIALIST Feb 08, 2025 23:19
[2025-02-08 23:45] VITALS: BP 126/62; PULSE 80; RESP 18; TEMP 98.1; O2SAT 97
--- NOTE | 2025-02-09 09:31 | HMCIMG ---
Exam Type: KNEE 3VWS LT Clinical Information: trauma, pain/bruising Comparison: None Findings: The bone examination is unremarkable. No fractures or dislocations are seen. No radiopaque foreign bodies are noted. Soft tissues are preserved. IMPRESSION: Normal examination.
== END 2025-02-08 23:45 | disposition home or self-care (01) ==
LOC: EDH 21:33
DX: S80.02XA Contusion of left knee, initial encounter (principal); E11.9 Type 2 diabetes mellitus without complications; I10 Essential (primary) hypertension; M19.90 Unspecified osteoarthritis, unspecified site; Z87.19 Personal history of other diseases of the digestive system; Z88.1 Allergy status to other antibiotic agents; Z88.5 Allergy status to narcotic agent; W22.8XXA Striking against or struck by other objects, initial encounter; Y93.89 Activity, other specified; Y92.89 Other specified places as the place of occurrence of the external cause; Y99.8 Other external cause status
CPT/HCPCS: 29505; 73562; 96372; 99283; J1885